=== PATIENT | female | born 1995 | race Caucasian/White ===

== ENCOUNTER 2020-02-12 18:54 | Inpatient (IN) | payer BC, OTHER ==
[~2020-02-12] VITALS: Ht 157.5 cm; Wt 65.0 kg
[~2020-02-12 18:54] MED LIST: ALBU18; CLON0.1T; SERT25TA84
[2020-02-12 22:55] LABS: Urine Bacteria MOD /hpf (None Seen); Urine Blood 2+ /uL (Negative); Urine Specific Gravity 1.019 (1.001-1.035); Urine WBC 1990 /hpf (0 - 5); Urine WBC Clumps PRESENT /hpf (None Seen)
[2020-02-12 23:32] LABS: Hematocrit 35.2 % (36.0-46.0); Hemoglobin 11.9 g/dL (12.2-16.2); Mean Corpuscular Hgb Conc. 33.7 g/dL (32.0-36.0); Mean Corpuscular Volume 80.2 fL (80.0-100.0); Platelet Count (auto) 320 10^3/uL (140-450); Red Blood Cells 4.39 10^6/uL (4.0-5.20); Red Cell Distribution Width 16.8 % (11.8-14.3); White Blood Cell 15.3 10^3/uL (4.4-10.8)
[2020-02-12 23:34] LABS: Band Neutrophils % (manual) 0; Basophils % (manual) 0 (0.0-2.0); Blast Cells 0; Eosinophils % (manual) 0 (0-7); Metamyelocytes % 0; Myelocytes % 0; Promyelocytes % 0; Reactive Lymphocytes 0
[2020-02-12 23:43] LABS: BUN/Creatinine Ratio 19.8; Potassium 3.6 mmol/L (3.5-5.1)
[2020-02-12 23:46] LABS: Bilirubin, Total 1.3 mg/dL (0.2-1.0); Total Protein 8.1 g/dL (6.4-8.2)
[2020-02-13 00:21] LABS: Albumin 2.5 g/dL (3.4-5.0)
[2020-02-13 00:22] LABS: Lymphocytes % (manual) 8 (10.0-50.0); Monocytes % (manual) 7 (0-12)
[2020-02-13] MEDS ORDERED: SODIUM CHLORIDE 0.9% 1,000 ML IV ONE ×2 (01:15→07:30)
[2020-02-13] MEDS ORDERED: ONDANSETRON HCL 4 MG/2 ML VIAL IV ONE ×2 (01:15→04:00)
[2020-02-13] MEDS ORDERED: MORPHINE SULFATE 4 MG/ML SYR/VIAL IV ONE ×2 (01:15→04:00)
[2020-02-13] MEDS ORDERED: cefTRIAXone 1GM/50ML D5W 50 ML IV ONE (04:00)
[2020-02-13] MEDS ORDERED: PHENAZOPYRIDINE HCL 100 MG TAB PO ONE (04:00)
[2020-02-13] MEDS ORDERED: PROMETHAZINE HCL 25 MG/ML 1ML IV ONE (05:15)
[2020-02-13] MEDS ORDERED: HYDROmorphone HCL 2 MG/ML VL IM ONE (05:15)
[2020-02-13] MEDS ORDERED: HYDROmorphone HCL 2 MG/ML VL IV ONE (05:45)
[2020-02-13] MEDS ORDERED: SODIUM CHLORIDE 0.9% 1,000 ML IV SCH ×4 (06:00→20:50)
[2020-02-13] MEDS ORDERED: DOCUSATE SOD 100 MG CAP PO PRN (07:30)
[2020-02-13] MEDS ORDERED: ACETAMINOPHEN 325 MG TAB PO PRN (07:30)
[2020-02-13] MEDS ORDERED: LORazepam 0.5 MG TAB PO PRN (07:30)
[2020-02-13] MEDS: HYDROcodone-ACET 5/325MG TAB PO PRN ×2 (07:42→18:44)
[2020-02-13 08:47] LABS: Basophils # (auto) 0 10 ^3/uL (0-0.2); Basophils % (auto) 0.2 % (0.0-2.0); Eosinophils # (auto) 0.1 10 ^3/uL (0-0.8); Eosinophils % (auto) 0.5 % (0.0-7.0); Hemoglobin 10.7 g/dL (12.2-16.2); Lymphocytes # (auto) 1.6 10 ^3/uL (0.4-5.4); Lymphocytes % (auto) 12.9 % (10.0-50.0); Mean Corpuscular Hemoglobin 27.8 pg (28.0-32.0); Mean Corpuscular Hgb Conc. 34.6 g/dL (32.0-36.0); Mean Corpuscular Volume 80.3 fL (80.0-100.0); Monocytes # (auto) 1.1 10 ^3/uL (0-1.3); Monocytes % (auto) 8.4 % (0.0-12.0); Neutrophils # (auto) 9.9 10 ^3/uL (1.6-8.6); Platelet Count (auto) 284 10^3/uL (140-450); Red Blood Cells 3.86 10^6/uL (4.0-5.20); White Blood Cell 12.7 10^3/uL (4.4-10.8)
[2020-02-13] MEDS ORDERED: TAMSULOSIN HYDROCHLORIDE 0.4 MG CAP PO SCH (10:00)
[2020-02-13] MEDS ORDERED: cefTRIAXone 1GM/50ML D5W 50 ML IV SCH (10:00)
[2020-02-13 10:25] LABS: BUN/Creatinine Ratio 25.4; Calcium 8.5 mg/dL (8.5-10.1); Potassium 3.5 mmol/L (3.5-5.1)
[2020-02-13] MEDS ORDERED: PANTOPRAZOLE 40 MG/10 ML VIAL INJ IV ONE (13:00)
[2020-02-13] MEDS ORDERED: levoFLOXacin 500MG 100 ML IV ONE (15:30)
[2020-02-13] MEDS: SODIUM CHLORIDE 0.9% 1,000 ML IV SCH ×2 (15:48→23:50)
[2020-02-13] MEDS: ONDANSETRON HCL 4 MG/2 ML VIAL IV PRN (15:49)
[2020-02-13] MEDS: MORPHINE SULF INJ 2 MG/ML SYRINGE 1ML IV PRN (15:49)
--- NOTE | 2020-02-13 16:50 | NUR ---
MS admit from ER ANDRES ALEJANDRO admitted to tele/MS after SBAR received. Patient oriented to Myla Rivera, primary RN, unit, room, bed, and unit policies regarding patient care and visiting hours. Patient weighed by bedscale and encouraged to call if they need something. All questions and concerns addressed, patient verbalized understanding. Note:
--- NOTE | 2020-02-13 17:00 | NUR ---
PT ARRIVED FROM ER VIA WHEELCHAIR, ALERT ORIENTED X4, VERY EMOTIONAL AND UPSET, STATED THEY WAS NOT NICE TO ME> SUPPORT PT, START TO CALM DOWN,WAS ABLE TO GIVE ALL HER INFORMATION TO THE RESOURCE RN NURSE, PAIN 4/10 AT THIS TIME ON RT FLANK AND LOWER ABDOMEN AREA, ROOM ORIENTATION GIVEN TO PT, ORIENTED TO CALL LIGHT
[2020-02-13 17:07] VITALS: BP 132/80
--- NOTE | 2020-02-13 18:56 | NUR ---
PT IS EATING DINNER, NO DISTRESS NOTED, FACE TIMING HER MOM OVER THE PHONE, CONTINUE MONITORING
--- NOTE | 2020-02-13 19:10 | NUR ---
Opening note Assumed care of patient. Patient alert and orientated x4. No distress or SOB noted. Bed locked in lowest position. Side rails up x2. Call light within reach. Will continue to monitor.
[2020-02-13 23:07] VITALS: BP 126/80
[2020-02-14] MEDS: MORPHINE SULF INJ 2 MG/ML SYRINGE 1ML IV PRN ×4 (01:02→19:37)
--- NOTE | 2020-02-14 01:02 | NUR ---
pain Patient states pain 10/10 on head and abdomen. Medicated per md orders. Will continue to monitor.
[2020-02-14] MEDS: ONDANSETRON HCL 4 MG/2 ML VIAL IV PRN ×4 (01:10→19:37)
[2020-02-14] MEDS: HYDROcodone-ACET 5/325MG TAB PO PRN ×2 (04:20→09:55)
--- NOTE | 2020-02-14 04:20 | NUR ---
pain Patient states pain 6/10. patient says she has a migraine. Medicates per md orders. Will continue to monitor.
[2020-02-14 05:21] VITALS: BP 109/77
[2020-02-14 06:21] LABS: Potassium 3.5 mmol/L (3.5-5.1)
[2020-02-14 06:28] LABS: BUN/Creatinine Ratio 23.2; Calcium 8.4 mg/dL (8.5-10.1)
[2020-02-14 06:45] LABS: Hemoglobin 9.4 g/dL (12.2-16.2)
[2020-02-14 06:47] LABS: Hematocrit 27.6 % (36.0-46.0); Mean Corpuscular Hemoglobin 27.3 pg (28.0-32.0); Mean Corpuscular Volume 80.2 fL (80.0-100.0); Platelet Count (auto) 249 10^3/uL (140-450); Red Blood Cells 3.44 10^6/uL (4.0-5.20); Red Cell Distribution Width 16.9 % (11.8-14.3); White Blood Cell 8.5 10^3/uL (4.4-10.8)
[2020-02-14 07:02] LABS: Basophils % (manual) 0 (0.0-2.0); Blast Cells 0; Eosinophils % (manual) 0 (0-7); Promyelocytes % 0; Reactive Lymphocytes 0
--- NOTE | 2020-02-14 07:25 | NUR ---
Closing note \ Endorsed care to day shift RN.
--- NOTE | 2020-02-14 07:36 | NUR ---
Opening Note Assumed pt care from NOC RN. Pt is a/ox4 with no s/s of distress or SOB. Pt is currently laying in bed with c/o pain to abdomen that radiates to back, 03/03; discussed next available pain medication. Discussed POC with pt; pt verbalized understanding. Safety measures maintained with call light within reach, bed in lowest position and side rails up. Will continue to monitor for changes.
[2020-02-14 07:40] LABS: Band Neutrophils % (manual) 4; Lymphocytes % (manual) 17 (10.0-50.0); Metamyelocytes % 1; Monocytes % (manual) 14 (0-12); Myelocytes % 1
[2020-02-14] MEDS: SODIUM CHLORIDE 0.9% 1,000 ML IV SCH ×3 (08:10→20:59)
[2020-02-14 09:00] VITALS: BP 115/75
[2020-02-14] MEDS: levoFLOXacin 500MG 100 ML IV SCH (09:05)
[2020-02-14] MEDS ORDERED: PANTOPRAZOLE 40 MG/10 ML VIAL INJ IV SCH (10:00)
--- NOTE | 2020-02-14 10:03 | NUR ---
Pt C/O Pain Pt c/o pain to flank area radiating to abdomen despite admin of IV pain medication. Pt also c/o nausea. Discussed next available pain medication and n/v medication. Provided pt with Norris at this time. Will continue to monitor.
[2020-02-14 13:00] VITALS: BP 105/68
--- NOTE | 2020-02-14 16:09 | NUR ---
Dr Godinez at Station Updated on pt's status. requests that urine sample be collected. states possibly d/c tomorrow. Specimen cup provided to pt. Will continue to monitor.
[2020-02-14 16:33] VITALS: BP 117/78
--- NOTE | 2020-02-14 19:27 | NUR ---
Opening Shift Note Assumed care of patient after receiving report from day RN. Patient awake and alert with no S/S of distress/SOB or pain. Call light within reach, bed in lowest position x2 side rails, HOB semi fowlers. Instructed on POC and to call for assist PRN, will continue to monitor for changes Q1hr and PRN.
[2020-02-14 22:00] VITALS: BP 128/70
--- NOTE | 2020-02-14 22:57 | NUR ---
Paged Hospitalist Paged hospitalist requesting medication for heartburn. Patient complains of heartburn and acid reflux. Order received form hospitalist for Tums 500 mg Q8H PRN. Order received, read back, verified, and placed. Will administer and continue to monitor.
[2020-02-14] MEDS ORDERED: CALCIUM CARB 500 MG CHEW TAB PO PRN (23:00)
[2020-02-15] MEDS: MORPHINE SULF INJ 2 MG/ML SYRINGE 1ML IV PRN ×4 (00:55→13:50)
[2020-02-15] MEDS: ONDANSETRON HCL 4 MG/2 ML VIAL IV PRN ×4 (00:55→13:49)
[2020-02-15 05:00] VITALS: BP 119/81
--- NOTE | 2020-02-15 07:40 | NUR ---
Opening Note Assumed pt care from WILMA RN. Pt is a/ox4 with no s/s of distress or SOB. Pt is currently laying in bed with no complaints at this time. Discussed POC with pt. Safety measures maintained with call light within reach, bed in lowest position and side rails up. Will continue to monitor for changes.
[2020-02-15] MEDS: SODIUM CHLORIDE 0.9% 1,000 ML IV SCH (08:34)
[2020-02-15 09:00] VITALS: BP 119/83
[2020-02-15] MEDS: levoFLOXacin 500MG 100 ML IV SCH (09:05)
--- NOTE | 2020-02-15 09:10 | NUR ---
Pt Refusing to Eat Pt states that she does "not have an appetite" and "my stomach hurts too much". Discussed need to try to eat something while taking pain medication. Provided pt with nausea medication and raudel with admin of pain medication. Will continue to monitor and encourage intake of foods. Addendum: 02/15/20 at 1405 by ELIA SALAS RN RN Pt had outside food brought in and is tolerating well. Will continue to monitor.
[2020-02-15 10:43] LABS: Amphetamine Screen, Urine NEGATIVE (NEGATIVE); Barbiturate Scree,Urine NEGATIVE (NEGATIVE); Benzodiazephine Screen, Urine NEGATIVE (NEGATIVE); Cannabinoid Screen, Urine NEGATIVE (NEGATIVE); Cocaine Screen, Urine NEGATIVE (NEGATIVE); Opiate Scree,Urine POSITIVE (NEGATIVE); Phencyclidine Screen, Urine NEGATIVE (NEGATIVE)
[2020-02-15 10:51] LABS: Alcohol, Urine < 3.0 mg/dL (0-10)
[2020-02-15 13:00] VITALS: BP 96/61
[2020-02-15 16:53] VITALS: BP 132/71
--- NOTE | 2020-02-15 17:03 | NUR ---
Dr Godinez at Bedside MD to see pt. Plans to d/c pt home today on antibiotics and ibuprofen. Will implement and continue to monitor.
[2020-02-15] MEDS ORDERED: LEVO-28 PO (17:11)
[2020-02-15] MEDS ORDERED: IBUP600T27 PO (17:11)
[2020-02-15 17:14] VITALS: BP 132/71
--- NOTE | 2020-02-15 18:07 | NUR ---
IV D/C'ed IV to pt's L FA removed. Catheter was removed fully intact. Site is asymptomatic. Pressure was applied to site for 3 minutes with gauze and then wrapped in coban. Pt instructed to keep dressing on for 30 minutes; pt verbalized understanding.
--- NOTE | 2020-02-15 18:39 | NUR ---
Pt D/C'ed Off Unit Pt d/c'ed off unit via wheelchair. Pt is a/ox4 with no s/s of distress or SOB. Pt provided all education material, follow up appointment information, prescription information, and all questions were answered. IV was d/c'ed prior to d/c.
== END 2020-02-15 18:32 | disposition home or self-care (01) | DRG 689 ==
LOC: ER 18:54 → OVERFLOW 18:55 → CENTRAL 02-13 16:52
PROVIDERS: ADMIT Hospitalist; ATTEND Hospitalist
DX: N39.0 Urinary tract infection, site not specified (principal); N17.0 Acute kidney failure with tubular necrosis; R65.10 Systemic inflammatory response syndrome (SIRS) of non-infectious origin without acute organ dysfunction; G62.9 Polyneuropathy, unspecified; Z88.8 Allergy status to other drugs, medicaments and biological substances; E88.09 Other disorders of plasma-protein metabolism, not elsewhere classified
CPT/HCPCS: 36415; 74176; 80048; 80053; 80307; 81001; 81025; 82150; 83690; 83735; 85007; 85025; 85027; 87086; 87088; 87186; 96361; 96365; 96375; 96376; C9113; G0378; J0696; J1956; J2405